=== PATIENT | female | born 1970 | race Caucasian/White ===

== ENCOUNTER 2024-06-18 05:10 | Observation (INO) ==
--- NOTE | 2024-05-19 10:15 | PAT Medication Instructions ---
Medication Instructions Date of Service May 19, 2024 Home Medications albuterol sulfate 90 mcg/actuation aerosol inhaler (ProAir HFA) 2 puff inhalation 6XD PRN guselkumab 100 mg/mL subcutaneous syringe (Tremfya) 100 mg subcut UD cholecalciferol (vitamin D3) 50 mcg (2,000 unit) capsule (Vitamin D3) 50 mcg PO QAM ibuprofen 200 mg tablet (Advil) 400 mg PO BID PRN multivitamin 1 tab PO 5XWK ASK your surgeon for instructions ibuprofen 200 mg tablet (Advil) 400 mg PO BID PRN ASK your prescriber and surgeon guselkumab 100 mg/mL subcutaneous syringe (Tremfya) 100 mg subcut UD DO NOT take the morning of surgery cholecalciferol (vitamin D3) 50 mcg (2,000 unit) capsule (Vitamin D3) 50 mcg PO QAM multivitamin 1 tab PO 5XWK Take morning of surgery With a small sip of water, OTHERWISE NOTHING TO EAT OR DRINK AFTER MIDNIGHT: albuterol sulfate 90 mcg/actuation aerosol inhaler (ProAir HFA) 2 puff inhalation 6XD PRN(use if needed; please bring with you to hospital day of surgery if possible) Take evening before surgery albuterol sulfate 90 mcg/actuation aerosol inhaler (ProAir HFA) 2 puff inhalation 6XD PRN(if needed) Other Notes If you have any questions please call us at [phone] or [phone] or [phone] or [phone]
--- NOTE | 2024-05-20 13:26 | Anesthesiology Consultation ---
Date of Service May 20, 2024 Assessment & Plan (1) Encounter for pre-operative examination: Chart Review Chart Review: Acceptable Risk for Surgery and Patient seen in Pre Admission Testing Pt currently scheduled as 23 hours observation. If surgeon decides to change patient to Same Day Joint, patient would be acceptable risk for CAIN, pending patient is motivated, has good support and surgeon's office completes Same Day Joint Program preop requirements. Per PAT appt on 05/20/24, no recent illness/disease exposures, illness related symptoms, or recent illness/disease positive tests. Will leave to surgeon's disc retion if preop Covid testing needed Seen by PCP 05/27/24= seen for preop evaluation. Asthma- chronic and stable. Migraines- chronic and stable. Preop evaluation- exam normal... "She is medically stable for elective surgery." Teaching & Discussion Pre-Anesthesia Teaching/Discussion Notes: Instructed NPO after midnight before surgery,except medications with 15 cc of water. Medication instructions provided according to the PAT guidelines. History Surgery Operation Date: 06/18/24 09:10 Proposed Procedures p Right Total Hip Arthroplasty - Stefan Mann MD Height/Weight Height: 5 ft 10 in Weight: 82.4 kg Allergies Allergy/AdvReac Type Severity Reaction Status Date / Time Sulfa (Sulfonamide Allergy Severe severe Verified 05/19/24 07:36 Antibiotics) headache nickel AdvReac Mild skin Verified 05/19/24 07:37 irritation Medications Home Medications Medication Instructions Recorded Confirmed Last Taken albuterol sulfate 90 mcg/actuation 2 puff inhalation 6XD PRN SOB 07/14/21 05/19/24 Unknown aerosol inhaler (ProAir HFA) guselkumab 100 mg/mL subcutaneous 100 mg subcut UD 07/14/21 05/19/24 Unknown syringe (Tremfya) cholecalciferol (vitamin D3) 50 50 mcg PO QAM 05/19/24 05/19/24 Unknown mcg (2,000 unit) capsule (Vitamin D3) ibuprofen 200 mg tablet (Advil) 400 mg PO BID PRN Pain 05/19/24 05/19/24 Unknown multivitamin 1 tab PO 5XWK 05/19/24 05/19/24 Unknown Past Medical History Medical History Asthma uses albuterol prn - flares when sick or when anxious. History of anemia resolved s/p hysterectomy per pt History of COVID- ~2020: moderate symptoms with fever and fatigue, treated with paxlovid. resolved. History of hypertension resolved with job change History of pneumonia 03/2024- symptoms fully resolved Hx of migraines denies recent migraine Psoriasis Follows with derm Psoriatic arthritis Stable - follows with rheum PRN Situational anxiety Exercise / Class Metabolic Activity II 4-5 Yardwork/Stairs/Walk up hill (one flight of stairs - no chest pain or SOB ) Past Family History Family History Mother Family history of diabetes mellitus Other No family history of adverse response to anesthesia Past Surgical History Surgical History H/O foot surgery right foot tendon repair History of hysterectomy with RSO History of tooth extraction Past Anesthesia History No Hx of Anesthesia Complications and No Family Hx of Anesthesia Complications (with exception to mother - had to be reintubated post op - due to COPD ) History of PONV No Hx of PONV and No Hx of Motion Sickness Social History Smoking Status: Former smoker tobacco type: cigarettes Do You Dip or Chew Tobacco: No Smoking End Date: 11/07/21 Hx Alcohol Use: No Hx Substance Use: No substance use type: does not use Review of Systems - Hx of snoring- occ witnessed apnea - no hx of sleep study Patient denies chest pain, shortness of breath, dyspnea on exertion, reflux, cough, wheezing, palpitations. No hx of seizures, stroke, [place],. No hx of blood clots or blood transfusions Physical Exam Vital Signs VITALS BP 128/75 P 72 TEMP 98.1 SP02 96% RESP16 Constitutional no acute distress ENMT Mouth: no TMJ clicking Thyromental Distance: > or= 3.5 Finger Breadths Mallampati Class: II Missing molar Neck neck extension not limited Respiratory normal respiratory effort; no respiratory distress Auscultation: lungs clear to auscultation bilaterally; no wheezes Cardiovascular Rate/Rhythm: regular rate and regular rhythm Heart Sounds: no murmur Vessels: no carotid bruit Musculoskeletal Spine: no pain with cervical ROM Extremities: extremities normal to inspection Psychiatric Orientation: alert Lab Results Anesthesia Preop Results Results Anesthesia Widget: WBC 7.98 K/ul (4.8-10.8) 05/20/24 Hgb 13.8 g/dl (12.0-16.0) 05/20/24 Hct 39.2 % (37.0-47.0) 05/20/24 Plt 235 K/uL (130-400) 05/20/24 Na 140 mmol/L (136-145) 05/20/24 K 4.0 mmol/L (3.5-5.1) 05/20/24 Cl 106 mmol/L (98-107) 05/20/24 CO2 28 mmol/L (21-32) 05/20/24 BUN 17 mg/dl (6-23) 05/20/24 Creat 0.93 mg/dl (0.6-1.2) 05/20/24 Fasting Glucose 92 mg/dl (70-99) 05/20/24 PT 10.6 Seconds (9.0-12.0) 05/20/24 PTT 25 Seconds (21-31) 05/20/24 INR 1.0 (0.9-1.1) 05/20/24 Urine Color Yellow 05/20/24 Urine Appearance Clear (Clear) 05/20/24 Urine pH 5.5 (4.5-7.5) 05/20/24 Urine Specific [place] 1.012 (1.000-1.030) 05/20/24 Urine Protein Negative (Negative) 05/20/24 Urine Glucose (UA) Negative (Negative) 05/20/24 Urine Ketones Negative (Negative) 05/20/24 Urine Blood Negative (Negative) 05/20/24 Urine Nitrite Negative (Negative) 05/20/24 Urine Bilirubin Negative (Negative) 05/20/24 Urine Urobilinogen Negative (Negative) 05/20/24 Urine Leukocyte Esterase Negative (Negative) 05/20/24 Blood Type A Negative 05/20/24 Antibody Screen NEGATIVE 05/20/24 Testing Electrocardiogram Date: 05/20/24 Findings: + NSR @ (63bpm) Normal EKG per cardio Chest X-Ray Date: 05/20/24 Findings: + NAD
--- NOTE | 2024-05-20 16:30 | History & Physical Report ---
Date of Service May 20, 2024 Assessment & Plan (1) Osteoarthritis of right hip: Plan: PRE-OP Diagnosis: Right hip osteoarthritis Planned Procedure: Right total hip arthroplasty Plan: Patient is scheduled to undergo this procedure at the [facility] with Dr. Mann on , June 18, 2024. Risks and complications of the procedure such as: Infection, bleeding, pain, scarring, nerve blood vessel damage, weakness, wound problems, stiffness, incomplete relief of symptoms, hardware failure, hardware loosening, wear, fracture, tendon or ligament injury, dislocation, leg length inequality, blood clots, Embolism, heart attack, stroke and were explained to the patient at her visit today. Informed consent to perform the procedure was obtained. Patient has an appointment to meet with anesthesia later this afternoon and while there will obtain CBC with differential, complete metabolic panel, PT/INR, blood type and screen, urinalysis, urine culture and sensitivity, EKG, chest x-ray and a nasal culture for MRSA. Patient will also need preoperative medical clearance from their primary care provider. Patient is scheduled to see Dr. Kaur next Saturday. Patient states that she plans on doing in-home physical therapy for the first 1 to 2 weeks postoperatively. Patient states that she will most likely elect to do outpatient physical therapy at [facility]. Patient will need a walker, raised toilet seat, shower chair and a hip kit. During today's visit we reviewed the total hip packet as well as precautions. We discussed discharge planning from the hospital. I provided paperwork to obtain a handicap placard for their vehicle. We discussed lectures offered by [facility] in regards to joint replacement surgery via Zoom. I advised the patient that upon discharge from hospital we will prescribe a narcotic pain medication and anti-inflammatory. Patient will also be on an Xarelto for blood clot prevention due to her family history. Patient will be scheduled for 2-week postoperative follow-up visit with July 01. This chart was completed utilizing [employer] voice recognition software. Grammatical errors, random word insertions, pronoun errors, and in complete sentences are an occasional consequence of the system. Any questions or concerns about the content, text, or information contained within the body of this dictation should be addressed directly to the physician for clarification. History of Present Illness Chief Complaint: Chief Complaint: Right hip pain Primary Care Provider: NELLIE KAUR History of Present Illness (including history relevant to procedure): This 53-year-old female presents the clinic today for her preoperative history and physical. Patient has a longstanding history of significant right hip pain that has became worse over the past few months. She was initially scheduled for surgical intervention a few years ago but changed her mind at the last minute. She reports that it feels like someone is pulling on her right thigh. Patient states that recently she was struggling to get out of bed and was only comfortable laying flat on her back. The patient reports occasional numbness in her right thigh.Previous cortisone injections provided about 2 weeks of relief. Patient states she occasionally uses Advil or Aleve for pain relief which is not very effective. Patient also states she quit smoking a little over 2 years ago. Review Of Systems: A 12 point review of systems is performed is unremarkable except for those things stated in the HPI and past medical history. Past Medical History: Problems: Osteoarthritis of right hip Pre-op exam Psoriatic arthritis Asthma Recent infection with pneumonia Rheumatoid arthritis Procedure History Procedure Procedure Date Comments Hysterectomy Tendon repair in her foot Allergies and Sensitivities: sulfa drugs(Headache) Current Home Meds: (Last Updated 05/20 11:49) albuterol (Albuterol (Eqv-ProAir HFA) 90 mcg/inh inhalation aerosol) 2 puff guselkumab (Tremfya Prefilled Syringe 100 mg/mL SQ solution) 100 mg subQ INJECT 1 SYRINGE (100MG) UNDER THE SKIN EVERY 8 WEEKS Allergies Allergy/AdvReac Type Severity Reaction Status Date / Time Sulfa (Sulfonamide Allergy Severe severe Verified 05/19/24 07:36 Antibiotics) headache nickel AdvReac Mild skin Verified 05/19/24 07:37 irritation Home Medications Medication Instructions Recorded Confirmed Type albuterol sulfate 90 mcg/actuation 2 puff inhalation 6XD PRN SOB 07/14/21 05/19/24 History aerosol inhaler (ProAir HFA) guselkumab 100 mg/mL subcutaneous 100 mg subcut UD 07/14/21 05/19/24 History syringe (Tremfya) cholecalciferol (vitamin D3) 50 50 mcg PO QAM 05/19/24 05/19/24 History mcg (2,000 unit) capsule (Vitamin D3) ibuprofen 200 mg tablet (Advil) 400 mg PO BID PRN Pain 05/19/24 05/19/24 History multivitamin 1 tab PO 5XWK 05/19/24 05/19/24 History Past Med/Surg History Problem List Osteoarthritis of right hip Encounter for pre-operative examination Medical History History of pneumonia 03/2024- symptoms fully resolved History of COVID-19 ~2020: moderate symptoms with fever and fatigue, treated with paxlovid. resolved. Situational anxiety History of hypertension resolved with job change Psoriasis Follows with derm Psoriatic arthritis Stable - follows with rheum PRN History of anemia resolved s/p hysterectomy per pt Hx of migraines denies recent migraine Asthma uses albuterol prn - flares when sick or when anxious. 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 Extraocular moods are intact Throat : Posterior oropharynx clear with absence of edema, erythema or exudate. Dentition is appropriate Cardiac: Regular rate and rhythm with no murmurs or gallops appreciated Lungs: Clear to auscultation throughout with no wheezing, rales or rhonchi Abdomen: Obese, nondistended, nontender with NABS Extremities: Right lower extremity; ROM: Hip flexion 95 / Abduction 35/ External rotation 50/ Internal rotation 5, Scour test is positive but impingement tests equivocal. SACHA test is approximately 8 fists from the table. Stinchfield test is positive. She does experience pain in the groin with logroll testing and with palpation patient is neurovascularly intact but does walk with an antalgic gait Neuro: Annual nerves II through XII are intact no motor or sensory deficit Skin: Some psoriatic arthritis patches on knees and elbows. Otherwise normal appearance with no open skin areas or discharge Results & Data Diagnostic Findings Studies (relevant to the procedure): 3 views (AP Pelvis, False Profile, and Cross Table Lateral) of the right hip obtained show some interval improvement in acetabular cysts. Continues to have central pattern osteoarthritis, medial joint space narrowing. Anterior joint space narrowing worse than prior imaging. MRI of the right hip obtained in 2020, which shows cysts in the anterior superior acetabulum.
[2024-06-18] MEDS: LR 500ML BOLUS, THEN 15ML/HR IV SCH (05:50)
[2024-06-18] MEDS: traMADol HCL 50 MG TABLET PO SCH (05:52)
[2024-06-18] MEDS: dexAMETHasone**PF** 10 MG/ML VIAL IV SCH (05:52)
[2024-06-18] MEDS: FAMOTIDINE 20 MG TAB PO SCH (05:52)
[2024-06-18] MEDS: ACETAMINOPHEN 500 MG TAB PO SCH ×2 (05:52→14:33)
[2024-06-18] MEDS: Scopolamine 1 MG TDSY TD SCH (05:53)
[2024-06-18] MEDS ORDERED: BUPIVACAINE 0.5 % 5 MG/1 ML PF 10ML VIAL ONE (06:19)
[2024-06-18] MEDS ORDERED: MIDAZOLAM HCL 1 MG/ML 2ML VIAL ONE (06:29)
[2024-06-18] MEDS ORDERED: fentaNYL citrate PF 100 MCG/2 ML VIAL ONE (06:29)
[2024-06-18] MEDS ORDERED: LIDOCAINE 2% 2 ML VIAL/AMP(20MG/ML) INFIL ONE (06:37)
[2024-06-18] MEDS ORDERED: PROPOFOL IV EMULSION 10 MG/ML 100 ML VIAL IV ONE (06:37)
--- NOTE | 2024-06-18 06:37 | History & Physical Bridge Note ---
Date of Service June 18, 2024 History & Physical Bridge Note I have examined the patient, reviewed the History & Physical and in the interval since the performance of the History & Physical I have noted the following changes of clinical significance: no changes noted
[2024-06-18] MEDS ORDERED: ONDANSETRON INJ 2 MG/ML 2 ML VIAL IV PRN ×2 (06:38→09:22)
[2024-06-18] MEDS ORDERED: ePHEDrine sulfate 50 MG/ML AMP IV PRN (06:38)
[2024-06-18] MEDS ORDERED: fentaNYL citrate PF 100 MCG/2 ML VIAL IV PRN (06:38)
[2024-06-18] MEDS ORDERED: ATROPINE SULFATE 0.1 MG/ML 10ML SYR IV PRN (06:38)
[2024-06-18] MEDS: TRANEXAMIC ACID 1,000 MG **IV Pre-op IV SCH (06:40)
[2024-06-18] MEDS ORDERED: PHENYLEPHRINE HCL 10 MG/ML VIAL ONE (06:46)
[2024-06-18] MEDS: ceFAZolin 2000MG 2,000 MG/15 ML SYR IV SCH ×2 (06:58→14:33)
--- OUTSIDE RECORDS SUMMARY | 2024-06-18 07:11 | External Medical Summary | Continuity of Care Document ---
Author Name Unknown Organization [facility] [address] [place], [place] [address] Address [address], [place] [id number] Encounter PS FINNBR [id number] Date(s): 05/20/24 - 05/20/24 [facility] [address] [facility] [address] [facility] Medicine [address] [place] [id number] Encounter Diagnosis Pre-op exam(Discharge Diagnosis) - 05/20/24 Osteoarthritis of right hip(Discharge Diagnosis) - 05/20/24 Discharge Disposition: Home or Self Care Attending Physician: DIEGO Woods Dennis Referring Physician: MD Mackenzie, Stefan Wolfe Allergies, Adverse Reactions, Alerts Substance Criticality Severity Reaction Reaction Severity Status sulfa drugs Unable to assess criticality Moderate Headache Active Medications Albuterol (Eqv-ProAir HFA) 90 mcg/inh inhalation aerosol Start: 07/07/21 2:54:00 PM EST, 2 puff Start Date: 07/07/21 Status: Ordered Tremfya Prefilled Syringe 100 mg/mL SQ solution Start: 07/17/21 2:47:00 PM EST, 1 mL, subQ, mL, INJECT 1 SYRINGE (100MG) UNDER THE SKIN EVERY 8 WEEKS Start Date: 07/17/21 Status: Ordered Mental Status 05/20/24 Barriers to Learning one year None evide nt Mandatory Health Literacy Documentation Yes Health Literacy Communication Barriers N ever Primary Language Malawian Problem List Condition Confirmation Course Effective Dates Status H ealth Status Informant Osteoarthritis of right hip Confirmed Active Pre-op exam Confirmed Active Psoriatic arthritis Confirmed Active Diagnosis Diagnosis Type Effective Dates Health Status Clinical Service Informant Pre-op exam Discharge Diagnosis 05/20/24 Osteoarthritis of right hip Discharge Diagnosis 05/20/24 Vital Signs Most recent to oldest [Reference Range]: 1 Temperature [36.5-37.9 DegC] 36.2 DegC *LOW* (05/20/24 11:50 AM) Respiratory Rate 20 br/min (05/20/24 11:50 AM) Blood Pressure 126/84mmHg (05/20/24 11:50 AM) Cuff Pulse Pressure 42 mmHg (05/20/24 11:50 AM) Social History Social History Type Response Smoking Status Never smoked cigaret andreia Sex Sex Representation Female (finding)
[2024-06-18] MEDS: LR 60ML/HR IV SCH (07:20)
[2024-06-18] MEDS: ORTHO JOINT ANESTHETIC ONE (07:31)
[2024-06-18] MEDS: ROPIVACAINE 0.5% HCL/PF 246 MG, Ketorolac (*for OR use only*) 30 MG, EPINEPHrine 30MG/3... INFIL SCH (07:31)
[2024-06-18] MEDS ORDERED: ONDANSETRON INJ 2 MG/ML 2 ML VIAL ONE (08:17)
[2024-06-18] MEDS ORDERED: KETAMINE HCL 10MG/ML SYR ONE (08:20)
[2024-06-18] MEDS ORDERED: PROPOFOL IV EMULSION 10 MG/ML 20 ML VIAL IV ONE (08:34)
[2024-06-18] MEDS: TRANEXAMIC ACID 1,000 MG **IV Intra-op IV SCH (08:44)
--- NOTE | 2024-06-18 09:18 | Operative Report ---
Post Operative Report Pre & Post Diagnosis Operation Date: 06/18/24 07:00 Pre-Op Diagnosis: Right Hip Osteoarthritis Post-Op Diagnosis: Right Hip Osteoarthritis I identified the patient and participated in the time-out.: Yes Procedure Operation Date: 06/18/24 07:00 Actual Procedures p Right Total Hip Arthroplasty, Uncemented(Right) - Stefan Mann MD Surgeon Stefan Mann MD Furnace Worker Jaxson Atkins DO and BETITO Woods PA-C. Estimated Blood Loss 100 Findings Consistent with Post-Op Diagnosis Specimens Right femoral head Anesthesia Type Spinal MAC Complications none Disposition Disposition: Recovery Room Indications 54-year-old female with right hip osteoarthritis refractory to conservative management. X-rays demonstrate joint space narrowing and subchondral sclerosis. I had a long discussion with her about the risks and benefits of surgery, alternatives to surgery, and expected outcomes. After reviewing all these she elected to proceed with surgery. All questions were answered. Informed consent was signed. Description of Procedure Patient was identified in the preoperative holding area where the surgical site, right hip, was marked. A spinal anesthetic was placed, then the patient was brought back to the main operating room, placed in the operating table and moved into the lateral decubitus position. Axillary roll was placed. All bony prominences were padded. Perioperative antibiotics and tranexamic acid 1 gram IV were administered. The operative extremity was prepped and draped in the normal sterile fashion. Prior to incision a multidisciplinary timeout was called. All in the room were in agreement. We began by making an incision for a posterior approach to the hip. We dissected down through subcutaneous tissues to the level of the fascia. The fascia was incised in line with the incision. Charnley bow was placed. Fatty tissue was reflected posteriorly off the back of the greater trochanter to expose the piriformis and short external rotators of the hip. Quadratus femoris was taken off the femur subperiosteally. The piriformis and short external rotators were dissected off the posterior aspect of the hip. A box cut was made in the capsule. Inferior hip capsule was released off the femur. The femoral head was dislocated. The femoral neck cut was made at our preoperative template. The acetabulum was then exposed. The labrum was sharply excised. Contents of the cotyloid fossa were removed with electrocautery. We then began reaming at a size 8 mm less than our preoperative template. We reamed up by 1 [address] the way up to a size 54 mm cup. This gave us good bleeding cancellus bone circumferentially. The acetabulum was then irrigated out and dried. The real [place] Gription cup was then impacted down into position with 45 degrees of lateral opening and 25 degrees of anteversion. A single cancellous bone screw was placed up into the ilium. Excellent fixation was obtained. A trial liner for a 36 mm femoral head was then placed. Next we turned our attention to the femur. The lateral neck was removed with a box osteotome. Intramedullary guide was used to establish the intramedullary canal. We then broached all the way up to a size 4. We began trialing with a standard offset neck and a +8.5 head. Hip was reduced. Leg lengths were symmetric. The hip was stable in extension and external rotation, and stable in the sleeper position. At 90 degrees of hip flexion the hip could be internally rotated 55 degrees before levering out of the cup. I was very happy with the stability exam. Therefore the hip was dislocated and the femoral trial was removed. The acetabulum was re-exposed, and the trial liner was removed. [place] hole eliminator screw was placed. An Altrx polyethylene liner for a 36 mm femoral head was then impacted into the shell. The locking mechanism was checked to ensure that it had engaged which it had. The femur was re-exposed. The femoral canal was irrigated and dried. The real Actis femoral stem was opened up. This was impacted down into position. The femoral head was opened up and gently impacted down onto the trunnion. The hip was atraumatically reduced. Another 1 gram of IV tranexamic acid was started prior to closure. The wound was irrigated out with sterile Betadine solution. The periarticular injection cocktail was then placed. The short external rotators, piriformis, and posterior capsule were repaired through drill holes in the greater trochanter using #2 Vicryl. The fascia was run with a looped #1 PDS. The subcutaneous layer was closed with #1 PDS. The dermal layer was closed with 2-0 Vicryl. Zip line was used for the skin followed by a Silverlon dressing. A compressive dressing was then placed. The patient was then rolled supine. Leg lengths were rechecked and were symmetric. An abduction pillow was placed. Sedation was lifted and the patient was transferred to the recovery room in stable condition. Summary of implants: Depuy [place] Gription Acetabular Shell Sector Cup, 54 mm outer diameter [place] Cancellous bone screw, 6.5 x 30 mm [place] hole eliminator Augusta Altrx Polyethylene Acetabular Liner, Neutral, with a 36 mm inner diameter DePuy Actis collared cementless Femoral stem, 12/14 taper, size 4 standard offset 36 mm ceramic femoral head with 8.5 offset Postoperative course: Patient will be admitted overnight from the recovery room. Patient will be weightbearing as tolerated with posterior hip precautions. Aspirin for DVT prophylaxis I attest to the content of the Intraoperative Record and any orders documented therein. Any exceptions are noted below.
[2024-06-18] MEDS ORDERED: METOCLOPRAMIDE HCL INJ 5 MG/ML 2 ML VIAL IV PRN (09:22)
[2024-06-18] MEDS ORDERED: diphenhydrAMINE 50 MG/ML VIAL IV PRN (09:22)
[2024-06-18] MEDS ORDERED: ALUMINUM/MAGNESIUM SUSP 30 ML UDC PO PRN (09:22)
[2024-06-18] MEDS ORDERED: bisacodyL 10 MG SUPP PR PRN (09:22)
[2024-06-18] MEDS ORDERED: oxyCODONE HCL IR 5 MG TAB (IMMEDIATE RELEASE) PO PRN (09:22)
[2024-06-18] MEDS ORDERED: MAGNESIUM HYDROXIDE SUSP 30 ML UDC PO PRN (09:22)
[2024-06-18] MEDS ORDERED: NALOXONE HCL 0.4 MG/1 ML VIAL/CARP IV PRN (09:22)
--- NOTE | 2024-06-18 09:22 | Operative Report ---
Post Operative Report Pre & Post Diagnosis Operation Date: 06/18/24 07:00 Pre-Op Diagnosis: Right Hip Osteoarthritis Post-Op Diagnosis: Right Hip Osteoarthritis I identified the patient and participated in the time-out.: Yes Procedure Operation Date: 06/18/24 07:00 Actual Procedures p Right Total Hip Arthroplasty, Uncemented(Right) - Stefan Mann MD Surgeon Stefan Mann MD Is Architect Jaxson Atkins DO and BETITO Woods PA-C. Estimated Blood Loss 100 Findings Consistent with Post-Op Diagnosis Specimens femoral head Description of Procedure I was present during the entire procedure assisting with positioning, prepping, draping, wound retraction, wound closure, dressing and abduction pillow placement. Fellow also present. I served as an extra set of hands during the case. Please see Dr. Mann procedure note for specifics of the case. I attest to the content of the Intraoperative Record and any orders documented therein. Any exceptions are noted below.
[2024-06-18] MEDS ORDERED: ALBUTEROL HFA 8 GM INHALER INH PRN (09:25)
--- NOTE | 2024-06-18 09:29 | Operative Report ---
Post Operative Report Pre & Post Diagnosis Operation Date: 06/18/24 07:00 Pre-Op Diagnosis: Right Hip Osteoarthritis Post-Op Diagnosis: Right Hip Osteoarthritis I identified the patient and participated in the time-out.: Yes Procedure Operation Date: 06/18/24 07:00 Actual Procedures p Right Total Hip Arthroplasty, Uncemented(Right) - Stefan Mann MD Surgeon Stefan Mann MD Senior Software Engineering Manager Jaxson Atkins DO and BETITO Woods PA-C. Estimated Blood Loss 100 Findings Consistent with Post-Op Diagnosis Specimens Right femoral head Description of Procedure Patient was brought to the operative suite where she underwent sedation after preoperative spinal anesthesia. She was positioned, the right lower extremity was prepped and draped in the usual sterile fashion. Surgical timeout was performed. Patient underwent a right total hip arthroplasty. See Dr. Mann's operative report for full details. I was present and assisted with patient positioning, limb positioning, surgical approach, hardware placement, wound closure, and dressing placement. Patient was taken to recovery in stable condition. I attest to the content of the Intraoperative Record and any orders documented therein. Any exceptions are noted below.
[2024-06-18] MEDS ORDERED: NON-FORMULARY MEDICATION (Multivitamin Tablet) PO SCH (09:30)
--- NOTE | 2024-06-18 09:50 | XRay Report ---
XR pelvis 1-2V routine CLINICAL HISTORY: In PACU - Post Surgical COMPARISON: 05/20/2024 FINDINGS: Interval right hip prosthesis shows no hardware constipation. There is expected soft tissu e gas. IMPRESSION: Unremarkable postoperative exam. ACT 112: Negative or not required by law. Electronically signed by: Kaushik Fonseca M.D. 06/18/2024 9:49 AM
--- NOTE | 2024-06-18 10:10 | Anesthesiology Progress Note ---
Date of Service June 18, 2024 Anesthesia Post Procedure Vital Signs Vital Signs: Temp Pulse Pulse Resp BP BP Pulse Ox 06/18/24 10:00 76 15 122/69 95 06/18/24 09:50 97.5 F L 80 15 115/80 95 06/18/24 09:40 79 16 115/94 96 06/18/24 09:30 87 18 125/61 97 06/18/24 09:20 97.7 F 91 H 18 141/86 H 97 06/18/24 05:42 98.2 F 83 18 119/82 96 O2 Del Method O2 Flow Rate 06/18/24 10:00 Room Air 06/18/24 09:50 Room Air 06/18/24 09:40 Room Air 06/18/24 09:30 Oxymask 5 06/18/24 09:20 Oxymask 5 06/18/24 05:42 Room Air Transfer of Care Handoff Completed per policy Notes Mental Status: alert / awake / arousable and participated in evaluation Patient Amnestic to Procedure: Yes Nausea / Vomiting: adequately controlled Pain: adequately controlled Airway Patency, RR, SpO2: stable & adequate BP & HR: stable & adequate Hydration State: stable & adequate Neuraxial Anesthesia: was administered and sensory block is resolving Anesthetic Complications: no major complications apparent and Pt Satisfied with anesthetic care
[2024-06-18] MEDS: KETOROLAC TROMETHAMINE 15 MG/ML VIAL IV SCH (12:19)
[2024-06-18] MEDS: Scopolamine CHECK PATCH PLACEMENT SCH (17:20)
[2024-06-18] MEDS: DOCUSATE SODIUM 100 MG CAP PO SCH (20:45)
[2024-06-18] MEDS: SENNA 8.6 MG TAB PO SCH (20:45)
[2024-06-19 08:00] LABS: Basophils # (auto) 0.03 K/uL (0.00-0.20); Basophils % (auto) 0.3 %; Eosinophils # (auto) 0.03 K/uL (0.00-0.50); Eosinophils % (auto) 0.3 %; Hematocrit (blood only) 34.3 % (37.0-47.0); Hemoglobin 11.7 g/dl (12.0-16.0); Immature Granulocytes # (auto) 0.05 K/uL (0.01-0.20); Immature Granulocytes % (auto) 0.4 %; Lymphocytes # (auto) 2.18 K/uL (1.20-3.40); Lymphocytes % (auto) 19.3 %; Mean Corpuscular Hemoglobin 30.4 pg (25.0-34.0); Mean Corpuscular Hgb Conc 34.1 g/dL (32.0-36.0); Mean Corpuscular Volume 89.1 fL (80.0-100.0); Monocytes # (auto) 0.76 K/uL (0.11-0.59); Monocytes % (auto) 6.7 %; Neutrophils # (auto) 8.24 K/uL (1.40-6.50); Platelet Count 201 K/uL (130-400); RDW Coefficient of Variation 12.8 % (11.5-14.5); RDW Standard Deviation 40.9 fL (36.4-46.3); Red Blood Count 3.85 M/uL (4.20-5.40); White Blood Count 11.29 K/ul (4.8-10.8)
[2024-06-19 08:01] VITALS: BP 102/62; RESP 15; TEMP 98.1; O2SAT 96
[2024-06-19] MEDS: CHOLECALCIFEROL 25 MCG (1000 UNITS) TAB PO SCH (08:26)
[2024-06-19] MEDS: dexAMETHasone 4 MG TAB PO SCH (08:26)
[2024-06-19] MEDS: MULTIVITAMIN TAB PO SCH (08:26)
[2024-06-19] MEDS: ASPIRIN 81 MG ECTAB PO SCH (08:26)
[2024-06-19 08:30] LABS: BUN Creatinine Ratio 24.3 (10-20); Calcium 9.1 mg/dl (8.6-10.3); Potassium 4.8 mmol/L (3.5-5.1)
--- NOTE | 2024-06-19 09:59 | Orthopedic Progress Note ---
Date of Service June 19, 2024 Assessment & Plan (1) S/P total hip arthroplasty: Plan: Total hip precautions reviewed Weightbearing as tolerated with walker assistance Pain controlled p.o. medication DVT prophylaxis with Xarelto and ALMA ROSA stockings Ice with easy wrap Abduction pillow use x 6 weeks Keep Silverlon dressing in place Plan is to discharge home this morning with in-home physical therapy for the first 2 weeks Follow-up at [facility] orthopedics as previously scheduled. With questions contact our clinic at [phone] Admission and Anticipated Discharge Date Admission Date: June 18, 2024 Subjective This 54-year-old female is day 1 status post right total hip arthroplasty. Patient is doing very well this morning. She is dressed and ready to be discharged. She states she has completed PT and OT. Currently she denies chest pain, shortness of breath, fever, chills, sweats, nausea, vomiting, diarrhea or numbness or tingling in her right lower extremity. Review of Systems Review of Systems: All systems reviewed & are unremarkable except as noted in Subjective Physical Exam Physical Exam: Right hip: Outer dressing was removed. Silverlon is clean dry and intact left in place. Patient is able to easily perform an active straight leg raise test. She is able to actively dorsi and plantarflex her foot without issue. She transitions from a seated to a standing position with the assistance of her walker with out limitation. Her quad strength is 4 out of 5. She tolerates light passive hip flexion near 80 degrees and only feels some slight pulling with internal rotation but no discomfort with external rotation. Logroll test negative. She is neurovascularly intact. Results & Data Vital Signs (Past 12 Hours) Vital Signs Temp Pulse Resp BP Pulse Ox O2 Del Method 06/19/24 07:58 36.7 C 15 102/62 96 Room Air 06/19/24 03:00 37.2 C 88 18 116/72 94 Room Air 06/18/24 23:00 36.9 C 84 18 97/60 L 92 Room Air Diagnostic Findings Laboratory Results WBC 11.29 K/ul (4.8-10.8) H 06/19/24 07:21 RBC 3.85 M/uL (4.20-5.40) L 06/19/24 07:21 Hgb 11.7 g/dl (12.0-16.0) L 06/19/24 07:21 Hct 34.3 % (37.0-47.0) L 06/19/24 07:21 MCV 89.1 fL (80.0-100.0) 06/19/24 07: MCH 30.4 pg (25.0-34.0) 06/19/24 07: MCHC 34.1 g/dL (32.0-36.0) 06/19/24 07: RDW Std Deviation 40.9 fL (36.4-46.3) 06/19/24 07: RDW Coeff of Horace 12.8 % (11.5-14.5) 06/19/24 07: Plt Count 201 K/uL (130-400) 06/19/24 07: MPV 12.0 fL (9.4-12.4) 06/19/24 07:21 Immature Gran % (Auto) 0.4 % 06/19/24 07: Neut % (Auto) 73.0 % 06/19/24 07: Lymph % (Auto) 19.3 % 06/19/24 07:21 [place] % (Auto) 6.7 % 06/19/24 07:21 Eos % (Auto) 0.3 % 06/19/24 07:21 Baso % (Auto) 0.3 % 06/19/24 07: Neut # (Auto) 8.24 K/uL (1.40-6.50) H 06/19/24 07:21 Lymph # (Auto) 2.18 K/uL (1.20-3.40) 06/19/24 07:21 [place] # (Auto) 0.76 K/uL (0.11-0.59) H 06/19/24 07:21 Eos # (Auto) 0.03 K/uL (0.00-0.50) 06/19/24 07:21 Baso # (Auto) 0.03 K/uL (0.00-0.20) 06/19/24 07: Immature Gran # (Auto) 0.05 K/uL (0.01-0.20) 06/19/24 07:21 Sodium 139 mmol/L (136-145) 06/19/24 07:21 Potassium 4.8 mmol/L (3.5-5.1) 06/19/24 07:21 Chloride 105 mmol/L (98-107) 06/19/24 07:21 Carbon Dioxide 28 mmol/L (21-32) 06/19/24 07:21 Anion Gap 6 (3-11) 06/19/24 07:21 BUN 25 mg/dl (6-23) H 06/19/24 07:21 Creatinine 1.03 mg/dl (0.6-1.2) 06/19/24 07:21 Est Cr Clr Drug Dosing 71.0 ml/min 06/19/24 07:21 eGFR 64.61 06/19/24 07:21 BUN/Creatinine Ratio 24.3 (10-20) H 06/19/24 07:21 Glucose 120 mg/dl (70-99(Fasting)) H 06/19/24 07:21 Calcium 9.1 mg/dl (8.6-10.3) 06/19/24 07:21 Impressions Pelvis X-Ray 06/18/24 09:22 XR pelvis 1-2V routine CLINICAL HISTORY: In PACU - Post Surgical COMPARISON: 05/20/2024 FINDINGS: Interval right hip prosthesis shows no hardware constipation. There is expected soft tissue gas. IMPRESSION: Unremarkable postoperative exam. ACT 112: Negative or not required by law. Electronically signed by: Kaushik Fonseca M.D. 06/18/2024 9:49 AM
--- NOTE | 2024-06-19 10:08 | Discharge Summary ---
Date of Service June 19, 2024 Admission HPI Per Admitting Provider History of Present Illness (including history relevant to procedure): This 53-year-old female presents the clinic today for her preoperative history and physical. Patient has a longstanding history of significant right hip pain that has became worse over the past few months. She was initially scheduled for surgical intervention a few years ago but changed her mind at the last minute. She reports that it feels like someone is pulling on her right thigh. Patient states that recently she was struggling to get out of bed and was only comfortable laying flat on her back. The patient reports occasional numbness in her right thigh.Previous cortisone injections provided about 2 weeks of relief. Patient states she occasionally uses Advil or Aleve for pain relief which is not very effective. Patient also states she quit smoking a little over 2 years ago. Review Of Systems: A 12 point review of systems is performed is unremarkable except for those things stated in the HPI and past medical history. Past Medical History: Problems: Osteoarthritis of right hip Pre-op exam Psoriatic arthritis Asthma Recent infection with pneumonia Rheumatoid arthritis Procedure History Procedure Procedure Date Comments Hysterectomy Tendon repair in her foot Allergies and Sensitivities: sulfa drugs(Headache) Current Home Meds: (Last Updated 05/20 11:49) albuterol (Albuterol (Eqv-ProAir HFA) 90 mcg/inh inhalation aerosol) 2 puff guselkumab (Tremfya Prefilled Syringe 100 mg/mL SQ solution) 100 mg subQ INJECT 1 SYRINGE (100MG) UNDER THE SKIN EVERY 8 WEEKS Admission Exam Per Admitting Provider Physical Exam: (relevant to the procedure, including heart and lung evaluation) General: Alert and oriented x 3 with proper grooming and hygiene Eyes: Pupils are equal reactive to light with accommodation. Extraocular moods are intact Throat : Posterior oropharynx clear with absence of edema, erythema or exudate. Dentition is appropriate Cardiac: Regular rate and rhythm with no murmurs or gallops appreciated Lungs: Clear to auscultation throughout with no wheezing, rales or rhonchi Abdomen: Obese, nondistended, nontender with NABS Extremities: Right lower extremity; ROM: Hip flexion 95 / Abduction 35/ External rotation 50/ Internal rotation 5, Scour test is positive but impingement tests equivocal. SACHA test is approximately 8 fists from the table. Stinchfield test is positive. She does experience pain in the groin with logroll testing and with palpation patient is neurovascularly intact but does walk with an antalgic gait Neuro: Annual nerves II through XII are intact no motor or sensory deficit Skin: Some psoriatic arthritis patches on knees and elbows. Otherwise normal appearance with no open skin areas or discharge Principal Diagnosis Right hip osteoarthritis Discharge Exam Right hip: Outer dressing was removed. Silverlon is clean dry and intact left in place. Patient is able to easily perform an active straight leg raise test. She is able to actively dorsi and plantarflex her foot without issue. She transitions from a seated to a standing position with the assistance of her walker with out limitation. Her quad strength is 4 out of 5. She tolerates light passive hip flexion near 80 degrees and only feels some slight pulling with internal rotation but no discomfort with external rotation. Logroll test negative. She is neurovascularly intact. Discharge Data Allergies Allergy/AdvReac Type Severity Reaction Status Date / Time Sulfa (Sulfonamide Allergy Severe severe Verified 06/18/24 05:39 Antibiotics) headache nickel AdvReac Mild skin Verified 06/18/24 05:39 irritation Procedures Performed Operation Date: 06/18/24 07:00 Actual Procedures p Right Total Hip Arthroplasty, Uncemented(Right) - Stefan Mann MD Hospital Course (1) S/P total hip arthroplasty: Patient had an uneventful overnight stay following right total hip arthroplasty. She is doing very well this morning. She is dressed and ready to be discharged. She states she had no difficulty completing PT/OT protocol. She is very pleased with the results of the surgery and states she really does not have any pain in her right hip. Total hip precautions reviewed Weightbearing as tolerated with walker assistance Pain controlled p.o. medication DVT prophylaxis with Xarelto and ALMA ROSA stockings Ice with easy wrap Abduction pillow use x 6 weeks Keep Silverlon dressing in place Plan is to discharge home this morning with in-home physical therapy for the first 2 weeks Follow-up at [facility] orthopedics as previously scheduled. With questions contact our clinic at [phone] Total Time Total Time Spent Total Time Spent (In Minutes): 20 mins Discharge Plan Discharge Items Patient Disposition: Home - Home Health Services Reason For Visit: Right Hip Osteoarthritis Discharge Diagnosis: s/p Right total hip arthroplasty Activity: As commented below Lifting: None Bathing: Keep incision dry Bathing Comment: May shower today Sexual Activity: Wait until after follow-up appointment Exercise/Sports: Wait until after follow-up appointment Driving/Machine Use: No driving until cleared by administrative services specialist Weightbearing: Right weightbearing Weightbearing Comment: As tolerated with walker assistance Non-emergency contact: Surgeon Call non-emergency contact if: you have any medication questions, your pain is not controlled, your temperature is above 101.5, your wound has increased drainage and your wound pain has increased Follow-up/Referrals: NELLIE KAUR M.D. [Primary Care Provider] - Diet: Regular Addtl Attending Provider Instructions: Post-operative Instructions Dear Patient and Family/Friends, Before you are discharged from the hospital, it is important to know what to expect when you get home after surgery. To that end, we have created this sheet of discharge instructions which covers many commonly asked questions. Make sure you go through this sheet in its entirety with your nurse before you are discharged. Please note that we will go over the specifics of your surgery and recovery when you return for your first post-operative visit. Sincerely, Dr. Mann Medications 1. Oxycodone 5 mg: Take 1-2 tabs every 4-6 hours as needed for postoperative pain control. A prescription for this medication will be sent to your pharmacy. 2. Diclofenac sodium 75 mg: Take 1 tab twice daily for the first 30 days postoperatively for pain and inflammation relief. This will also be sent to your pharmacy with 1 additional refill 3. Xarelto 10 mg: Take 1 tab daily for the first 30 days postoperatively for blood clot prevention. This will be sent to your pharmacy. 4. Extra strength Tylenol 500 mg: Take 2 tabs every 6-8 hours as needed for additional pain relief. Please purchase this medication Pain Expect to be in a fair amount of pain after surgery. Remember, our goal is not to eliminate your pain, but to make it tolerable. It is a good idea to stay ahead of your pain by taking the medications you were prescribed once you get home. Typically, the pain starts improving 3-7 days after surgery. You should start weaning off the narcotic pain medication (oxycodone, hydrocodone, hydromorphone, morphine) as soon as your pain improves. Please call our office if your pain is not adequately controlled. Ice Ice your operative site at least 5 times a day for 15-30 minutes at a time. Make sure you have a thin cloth between the ice or cooling unit and your skin to prevent preston bite. This is especially important if you received a nerve block. Continue icing your operative site for the first 5-7 days after surgery, then as needed. Diet/Nausea/Vomiting Start by drinking clear liquids and eating crackers. If you can tolerate this, then you may resume your normal diet. If you feel nauseated or vomit, take Zofran/ondansetron (if prescribed). Please call our office if you have intractable nausea or vomiting, or, if after hours, you may go to the Emergency Room for help. Constipation Constipation is a common side effect of narcotic pain medication. If you have not had a bowel movement within 2 days after surgery, we recommend purchasing an over the counter laxative such as Milk of Magnesia, Dulcolax, or Miralax from a local pharmacy, and taking it as instructed. Call our clinic if any questions. Nerve block The anesthesia team sometimes places a nerve block to help with post-operative pain control. This results in significant numbness and inability to move the extremity. The nerve block usually wears off in 8-12 hours, but sometimes can last up to 24 hours. Please call our office if you are still unable to move your extremity after 24 hours, unless you received a pain pump to take home. Nerve blocks typically wear off quickly, so start taking pain medication as soon as you start feeling soreness near your surgical site. Weight bearing and Range of Motion. Do not bear any weight through your operative extremity immediately after surgery. If you had upper extremity surgery, do not lift anything with that arm. If you are in a knee brace, keep it locked in place until your follow-up. We will discuss your weight bearing, range of motion, and lifting restrictions in detail at your first post-operative appointment. Continuous Passive Motion (CPM) Machine If you were prescribed a CPM machine, it will start after your first post- operative appointment, at which time we will give you instructions on the range of motion settings and duration of treatment Physical therapy You will be given a prescription for physical therapy or occupational therapy at your first post-operative appointment. Typically, patients start therapy within 1 week of surgery Wound care and showering We will inspect your wound at your first post-operative visit, and may do a dressing change at that time. Most patients will be in a water-proof dressing that is removed 14 days after surgery. It is normal to see some dried blood on the dressing. Do not remove your dressing, paper strips or sutures yourself unless you are given permission. Showering is allowed the day after surgery. Do not scrub or remove any dressings. The wound should not be submerged underwater (i.e. in a bathtub or pool) until 4 weeks after surgery ALMA ROSA stockings If you were given white stockings, these are to be worn at all times except to shower (on both legs) for the first 2 weeks after surgery. Driving You may not drive while taking narcotic pain medication or while in a cast, splint, sling or brace. You, the patient, need to make the final determination about when you are safe to drive, however, the earliest you may consider driving after surgery is below: Hand/Wrist/Elbow Surgery: 3 days Shoulder Surgery: 2 weeks Hip,/Knee/Ankle Surgery: 4 weeks Fracture repair: 6 weeks Return to Work Your return to work depends on what surgery was done and what type of work you do. Please bring any paperwork your employer needs completed to your first post-operative visit. Also, bring a description of your job duties, as this helps us to understand what risks you may face at work. Travel Avoid long distance travel (greater than 1 hour) in airplanes and cars for the first 6 weeks after surgery. If you must travel, you need to have a Doppler ultrasound done before you travel to rule out a blood clot in your legs. Follow-up You should have a follow-up appointment already scheduled 1-2 days after surgery. If not, please contact our office to make this appointment before you leave the hospital. When to call the office It is normal to have swelling and bruising in the limb that was operated on. This will improve with time. It is also normal to have fevers for the first 2 days after surgery. Reasons you should call your doctor include: Uncontrolled pain; Nausea, vomiting, or constipation that does not improve with medication; Fevers over 101.5, chills, sweats; Drainage or bleeding from the wound; Foul odor; Spreading areas of redness; Any other concerns. Contact Information Please call Dr. Mann's office at [phone] with any concerns. Pending Studies at Discharge: No Stand-Alone Forms: My [facility] Medications and DC Order Prescriptions: New acetaminophen [Tylenol Extra Strength] 500 mg Tablet 1,000 mg PO Q8 30 Days Qty: 180 0RF oxycodone 5 mg Tablet 5 - 10 mg PO Q4H MDD Onging Tx; Max 6/day PRN (Reason: Post op pain control) Qty: 28 0RF diclofenac sodium 75 mg tablet,delayed release (DR/EC) 75 mg PO BID 30 Days Qty: 60 1RF Xarelto 10 mg tablet 10 mg PO DAILY 30 Days Qty: 30 0RF Rx Instructions: for 35 days Continued albuterol sulfate [ProAir HFA] 90 mcg/actuation Hfa Aerosol Inhaler 2 puff INHALATION 6XD PRN (Reason: SOB) Tremfya 100 mg/mL Syringe 100 mg SUBCUT UD Patient Comments: EVERY 8 WEEKS multivitamin Tablet 1 tab PO 5XWK cholecalciferol (vitamin D3) [Vitamin D3] 50 mcg (2,000 unit) Capsule 50 mcg PO QAM Discontinued ibuprofen [Advil] 200 mg Tablet 400 mg PO BID PRN (Reason: Pain) Discharge Orders: Discharge Order (Routine); Ordered 06/19/24 Ordered By: Albino Woods Admission Data Admit Date/Time: 06/18/24 09:22 Attending Provider: Stefan Mann Admit Provider: Stefan Mann Primary Care Provider: NELLIE KAUR Other Providers: [facility],Home Healthcare Other Interventions: Discharge Summary Assessment (RN) Last Done: 06/19/24 10:15
[2024-06-19 11:32] VITALS: PULSE 68
== END 2024-06-19 11:01 | disposition home health service (06) | DRG 470 ==
LOC: ASU 05:10 → 3N 09:22 → INTOOBSV 09:22